=== PATIENT | male | born 1950 | race Two or more races ===

== ENCOUNTER 2024-09-07 19:14 | Inpatient (IN) | payer MEDICARE, OTHER ==
[~2024-09-07] VITALS: Ht 177.8 cm; Wt 125.8 kg
[~2024-09-07 19:14] MED LIST: DUTA0.5C PO; FAMO-132 PO; HYDR2TAB7 PO; LEVO25TA2 PO; LORA0.5T PO; NEBI5TAB8 PO
[2024-09-07 19:35] VITALS: BP 166/68; TEMP 98; O2SAT 98
[2024-09-07] MEDS ORDERED: LOSA100T31 PO (19:57)
[2024-09-07] MEDS ORDERED: AMLO10TA59 PO (19:57)
[2024-09-07] MEDS ORDERED: ACET325T53 PO (19:57)
[2024-09-07] MEDS ORDERED: HYDR-4075 PO (19:57)
[2024-09-07] MEDS ORDERED: ALBU2.5V13 NEB (19:57)
[2024-09-07] MEDS ORDERED: METO25TA6 PO (19:57)
[2024-09-07] MEDS ORDERED: TAMS-3 PO (19:57)
[2024-09-07] MEDS ORDERED: ONDA4AMP IVP (19:57)
[2024-09-07] MEDS ORDERED: ZOLP5TAB8 PO (19:57)
[2024-09-07] MEDS ORDERED: PIPE3.3749 IV (19:57)
[2024-09-07] MEDS ORDERED: MONT10TA33 PO (19:57)
[2024-09-07] MEDS ORDERED: IPRA0.2S48 NEB (19:58)
[2024-09-07 20:00] VITALS: BP 166/68; TEMP 98; O2SAT 98
[2024-09-07] MEDS ORDERED: ALBUTEROL SULFATE 2.5 MG/ 0.5 ML NEBU NEB PRN (20:30)
[2024-09-07] MEDS ORDERED: IPRATROPIUM BROMIDE 0.5 MG/2.5 ML NEBU NEB PRN (20:30)
[2024-09-07] MEDS ORDERED: ACETAMINOPHEN 325 MG TABLET-SA PATIENTS-PAIN ONLY PO PRN (20:30)
[2024-09-07] MEDS: HYDROMORPHONE HCL 2 MG TABLET PO PRN ×2 (20:37→22:56)
[2024-09-07] MEDS ORDERED: REMEDY ESSENTIAL ZINC PASTE 113 GM TOP PRN (21:30)
[2024-09-07] MEDS ORDERED: PIPERACILLIN SODIUM/TAZOBACTAM 3.375 G in IV NORMAL SALINE 50 ML IV SCH (21:30)
[2024-09-07] MEDS: TAMSULOSIN HCL 0.4 MG CAP.SR.24H PO SCH (21:35)
[2024-09-07] MEDS: hydrALAZINE HCL 25 MG TABLET PO PRN (21:35)
[2024-09-07] MEDS: ZOLPIDEM 5 MG TABLET PO PRN (21:44)
[2024-09-07] MEDS ORDERED: PIPERACILLIN SODIUM/TAZO 3.375 GM VIAL ONE (22:52)
[2024-09-07] MEDS: PIPERACILLIN SODIUM/TAZOBACTAM 3.375 G in IV NORMAL SALINE 50 ML IV SCH (23:21)
[2024-09-08 05:57] VITALS: BP 120/70; TEMP 98; O2SAT 99
[2024-09-08] MEDS: LEVOTHYROXINE SODIUM 175 MCG TABLET PO SCH (06:04)
[2024-09-08] MEDS ORDERED: ACETAMINOPHEN 325 MG TABLET PO PRN (07:30)
[2024-09-08 08:14] LABS: BASOPHILS # (AUTO) 0.1 K/UL (0.0-0.2); BASOPHILS % (AUTO) 0.5 % (0.0-2.0); DIFFERENTIAL COMMENT 1; EOSINOPHILS # (AUTO) 0.2 K/uL (0.0-0.7); EOSINOPHILS % (AUTO) 1.6 % (0.0-7.0); HEMATOCRIT 41.9 % (36.7-47.1); HEMOGLOBIN 13.9 g/dL (12.5-16.3); LYMPHOCYTES # (AUTO) 2.3 K/uL (0.8-4.8); LYMPHOCYTES % (AUTO) 18.6 % (20.5-51.5); MEAN CORPUSCULAR HEMOGLOBIN 27.5 uug (23.8-33.4); MEAN CORPUSCULAR HGB CONC 33 g/dL (32.5-36.3); MEAN CORPUSCULAR VOLUME 83.1 fL (73.0-96.2); MONOCYTES # (AUTO) 0.8 K/uL (0.1-1.30); MONOCYTES % (AUTO) 6.8 % (0.0-11.0); NEUTROPHILS % (AUTO) 72.5 % (38.5-71.5); PLATELET COUNT (AUTO) 239 K/uL (152-348); RED BLOOD CELL COUNT(AUTO) 5.04 MIL/uL (4.06-5.63); RED CELL DISTRIBUTION WIDTH 15.3 % (12.1-16.2); WHITE BLOOD COUNT (AUTO) 12.5 K/uL (3.6-10.2)
[2024-09-08 08:23] LABS: ALANINE AMINOTRANSFERASE 17 U/L (16-63); ALBUMIN 2.5 g/dL (3.4-5.0); ALKALINE PHOSPHATASE 47 U/L (50-136); ASPARTATE AMINOTRANSFERASE 13 U/L (15-37); BILIRUBIN,DIRECT 0.2 mg/dL (0.0-0.2); BILIRUBIN,TOTAL 0.6 mg/dL (0.2-1.0); CALCIUM 8.6 mg/dL (8.5-10.1); CARBON DIOXIDE 29 mmol/L (21-32); CHLORIDE 102 mmol/L (98-107); GLUCOSE 155 mg/dL (74-106); SODIUM SERUM 140 mmol/L (136-145); TOTAL PROTEIN, SERUM 6.6 g/dL (6.4-8.2); UREA NITROGEN, BLOOD 17 mg/dL (7-18)
[2024-09-08] MEDS: LOSARTAN POTASSIUM 50 MG TABLET PO SCH (08:58)
[2024-09-08] MEDS: DUTASTERIDE 0.5 MG CAPSULE PO SCH (08:58)
[2024-09-08] MEDS: AMLODIPINE 10 MG TABLET PO SCH (08:58)
[2024-09-08] MEDS: FAMOTIDINE 20 MG TABLET PO SCH (08:59)
[2024-09-08] MEDS: METOPROLOL TARTRATE 25 MG TABLET PO SCH (08:59)
[2024-09-08] MEDS: MONTELUKAST SODIUM 10 MG TABLET PO SCH (08:59)
[2024-09-08] MEDS ORDERED: LEVO175T7 PO (09:36)
[2024-09-08] MEDS ORDERED: PIPERACILLIN SODIUM/TAZOBACTAM 3.375 G in IV DEXTROSE 5% 100 ML IV SCH (09:46)
[2024-09-08 11:24] LABS: ANISOCYTOSIS 1+; EOSINOPHILS % (MANUAL) 2 % (0-8); LYMPHOCYTES % (MANUAL) 23 % (20-40); METAMYELOCYTES % 1 % (0-1); MONOCYTES % (MANUAL) 5 % (2-10); NEUTROPHILS % (MANUAL) 69 % (42-75); PLATELET ESTIMATE ADEQUATE
[2024-09-08] MEDS: POTASSIUM CHLORIDE 20 MEQ TAB.PRT.SR PO ONE (11:30)
[2024-09-08] MEDS ORDERED: PIPERACILLIN SODIUM/TAZO 3.375 GM VIAL IV SCH (12:00)
[2024-09-08] MEDS: PIPERACILLIN SODIUM/TAZOBACTAM 3.375 G in IV DEXTROSE 5% 50 ML IV SCH (12:56)
[2024-09-08] MEDS ORDERED: CYCL30DR EACHEYE (18:18)
[2024-09-08] MEDS ORDERED: ICOS1CAP PO (18:18)
[2024-09-08] MEDS ORDERED: MIRA50TA PO (18:18)
[2024-09-08] MEDS ORDERED: MOUNJARO SQ (18:18)
[2024-09-08 20:15] VITALS: BP 169/62; TEMP 98.2; O2SAT 97
[2024-09-08] MEDS: LORAZEPAM 0.5 MG TABLET PO PRN (21:23)
[2024-09-08] MEDS ORDERED: MORPHINE SULFATE SR 15 MG TABLET.SA PO PRN (21:45)
[2024-09-08] MEDS: HYDROMORPHONE HCL 2 MG TABLET PO PRN (21:58)
[2024-09-09] VITALS (7 sets, daily range): BP systolic 142–176; BP diastolic 53–77; TEMP 97.4–98.7; O2SAT 95–98
[2024-09-09] MEDS: ASPIRIN 81 MG TAB.CHEW PO SCH (09:13)
[2024-09-09] MEDS ORDERED: MOUNJARO SQ SCH (09:30)
[2024-09-09] MEDS: HYDROMORPHONE HCL 2 MG TABLET PO PRN (13:40)
[2024-09-09] MEDS: ICOSAPENT ETHYL 1 GM PO SCH (17:26)
[2024-09-09] MEDS: KETOROLAC TROMETHAMINE 10 MG TABLET PO PRN (17:27)
[2024-09-09] MEDS: ONDANSETRON 4 MG/2 ML VIAL IV PRN (22:49)
[2024-09-09] MEDS: HYDROMORPHONE 1 MG/1 ML DISP.SYRIN IV PRN (22:50)
[2024-09-09] MEDS: IV D5 1/2 NS 1000 ML 1,000 ML IV PRN (23:07)
[2024-09-10 04:30] VITALS: BP 182/71; TEMP 98.2; O2SAT 97
[2024-09-10] MEDS ORDERED: CLONIDINE-TTS 1 PATCH TD ONE (04:57)
[2024-09-10] MEDS: CLONIDINE-TTS 1 PATCH TD SCH (05:01)
[2024-09-10 07:06] LABS: BASOPHILS # (AUTO) 0.1 K/UL (0.0-0.2); EOSINOPHILS # (AUTO) 0.6 K/uL (0.0-0.7); EOSINOPHILS % (AUTO) 4.7 % (0.0-7.0); HEMOGLOBIN 12.7 g/dL (12.5-16.3); LYMPHOCYTES # (AUTO) 3.3 K/uL (0.8-4.8); LYMPHOCYTES % (AUTO) 25.2 % (20.5-51.5); MEAN CORPUSCULAR HEMOGLOBIN 27.8 uug (23.8-33.4); MEAN CORPUSCULAR HGB CONC 33 g/dL (32.5-36.3); MEAN CORPUSCULAR VOLUME 83.4 fL (73.0-96.2); MONOCYTES # (AUTO) 0.8 K/uL (0.1-1.30); NEUTROPHILS # (AUTO) 8.3 K/uL (1.8-8.9); NEUTROPHILS % (AUTO) 63.1 % (38.5-71.5); PLATELET COUNT (AUTO) 240 K/uL (152-348); RED BLOOD CELL COUNT(AUTO) 4.55 MIL/uL (4.06-5.63); RED CELL DISTRIBUTION WIDTH 15.5 % (12.1-16.2); WHITE BLOOD COUNT (AUTO) 13.1 K/uL (3.6-10.2)
[2024-09-10 07:10] LABS: DIFFERENTIAL COMMENT 1
[2024-09-10 07:20] LABS: ALANINE AMINOTRANSFERASE 13 U/L (16-63); ALBUMIN 2.1 g/dL (3.4-5.0); ALKALINE PHOSPHATASE 43 U/L (50-136); ASPARTATE AMINOTRANSFERASE 9 U/L (15-37); BILIRUBIN,TOTAL 0.4 mg/dL (0.2-1.0); CARBON DIOXIDE 29 mmol/L (21-32); CHLORIDE 103 mmol/L (98-107); GLUCOSE 146 mg/dL (74-106); LIPASE 39 U/L (16-77); MAGNESIUM 1.5 mg/dL (1.8-2.4); PHOSPHOROUS 3.1 mg/dL (2.5-4.9); SODIUM SERUM 138 mmol/L (136-145); TOTAL PROTEIN, SERUM 5.9 g/dL (6.4-8.2); UREA NITROGEN, BLOOD 12 mg/dL (7-18)
[2024-09-10] MEDS: MYRBETRIQ 25 MG PO SCH (08:48)
[2024-09-10] MEDS: EYE EMULSION EACHEYE SCH (09:00)
[2024-09-10] MEDS: CYCLOSPORINE 0.05% EACHEYE SCH (09:00)
[2024-09-10] MEDS: POTASSIUM CHLORIDE 10 MEQ TAB.PRT.SR PO SCH (11:06)
[2024-09-10] MEDS: MAGNESIUM OXIDE 400 MG TABLET PO ONE (11:06)
[2024-09-10 14:01] LABS: BAND % (MANUAL) 6 % (0-10); EOSINOPHILS % (MANUAL) 5 % (0-8); LYMPHOCYTES % (MANUAL) 21 % (20-40); MONOCYTES % (MANUAL) 6 % (2-10); NEUTROPHILS % (MANUAL) 52 % (42-75); PLATELET ESTIMATE ADEQUATE
[2024-09-10 14:02] LABS: ANISOCYTOSIS 1+
[2024-09-10 18:15] VITALS: BP 134/44; TEMP 97.9; O2SAT 96
[2024-09-10 20:00] VITALS: BP 132/50; TEMP 97.4; O2SAT 95
[2024-09-10] MEDS: DOCUSATE SODIUM 100 MG CAPSULE PO SCH (20:33)
[2024-09-11 08:30] VITALS: BP 145/53; TEMP 97.4; O2SAT 95
[2024-09-11 09:00] VITALS: O2SAT 96
[2024-09-11 16:00] VITALS: BP 132/57; TEMP 97.9; O2SAT 97
[2024-09-11 20:03] VITALS: BP 162/67; TEMP 98.4; O2SAT 98
[2024-09-11] MEDS: FAMOTIDINE 20 MG TABLET PO SCH (21:06)
[2024-09-12 05:22] VITALS: O2SAT 96
[2024-09-12 09:00] VITALS: O2SAT 97
[2024-09-12] MEDS: HYDROMORPHONE HCL 2 MG TABLET PO PRN (11:15)
[2024-09-12 16:36] VITALS: BP 139/59; TEMP 97.9; O2SAT 96
[2024-09-12] MEDS: FAMOTIDINE 20 MG TABLET PO ONE (18:31)
[2024-09-12 21:49] VITALS: BP 175/74; TEMP 98.2; O2SAT 98
[2024-09-13 01:49] VITALS: BP 140/60; TEMP 98.2; O2SAT 96
[2024-09-13 05:47] VITALS: O2SAT 98
[2024-09-13 06:29] VITALS: BP 138/59; TEMP 98.2; O2SAT 96
[2024-09-13] MEDS: OXYCODONE/APAP 5-325 MG TABLET PO SCH (13:56)
[2024-09-13 16:22] VITALS: BP 108/46; TEMP 98.2; O2SAT 96
[2024-09-13] MEDS: HYDROMORPHONE HCL 2 MG TABLET PO PRN (16:33)
[2024-09-13 16:50] VITALS: O2SAT 97
[2024-09-13 20:00] VITALS: BP 129/54; TEMP 98.2; O2SAT 98
[2024-09-13] MEDS: MELATONIN 3 MG TABLET PO SCH (21:04)
[2024-09-13] MEDS: ZOLPIDEM 5 MG TABLET PO PRN (22:50)
[2024-09-14 04:15] VITALS: O2SAT 97
[2024-09-14 06:00] VITALS: BP 147/70; TEMP 98.1; O2SAT 97
[2024-09-14 16:00] VITALS: BP 118/49; TEMP 98; O2SAT 99
[2024-09-14 16:35] VITALS: O2SAT 98
[2024-09-14 20:25] VITALS: O2SAT 98
[2024-09-15 06:00] VITALS: BP 133/67; TEMP 98.1; O2SAT 97
[2024-09-15 10:25] VITALS: O2SAT 97
[2024-09-15] MEDS ORDERED: IBUPROFEN 600 MG TABLET PO PRN (13:15)
[2024-09-15 16:00] VITALS: BP 93/41; TEMP 98.8; O2SAT 96
[2024-09-15 20:17] VITALS: BP 128/41; TEMP 98.1; O2SAT 98
[2024-09-16 06:38] VITALS: BP 130/42; TEMP 97.8; O2SAT 95
[2024-09-16 16:15] VITALS: BP 122/46; TEMP 98.1; O2SAT 96
[2024-09-16 20:08] VITALS: BP 114/52; TEMP 98; O2SAT 97
[2024-09-16] MEDS: LACTULOSE 20 G/30 ML LIQUID UDC PO SCH (22:18)
[2024-09-17 06:30] VITALS: BP 132/48; TEMP 97.9; O2SAT 97
[2024-09-17] MEDS: CLONIDINE-TTS 1 PATCH TD SCH (09:03)
[2024-09-17 16:21] VITALS: BP 113/48; TEMP 98.1; O2SAT 96
[2024-09-17 16:38] VITALS: O2SAT 96
[2024-09-17 20:00] VITALS: BP 133/54; TEMP 97.8; O2SAT 95
[2024-09-18 06:22] VITALS: BP 155/76; TEMP 97.8; O2SAT 94
[2024-09-18 16:31] VITALS: BP 114/50; TEMP 97.8; O2SAT 100
[2024-09-18 19:59] VITALS: BP 139/49; TEMP 98.1; O2SAT 97
[2024-09-19 05:19] VITALS: O2SAT 97
[2024-09-19 05:38] VITALS: BP 114/42; TEMP 97.9; O2SAT 98
[2024-09-19 07:12] LABS: BASOPHILS # (AUTO) 0.1 K/UL (0.0-0.2); EOSINOPHILS # (AUTO) 0.2 K/uL (0.0-0.7); EOSINOPHILS % (AUTO) 3.5 % (0.0-7.0); HEMATOCRIT 31.2 % (36.7-47.1); HEMOGLOBIN 10.8 g/dL (12.5-16.3); LYMPHOCYTES # (AUTO) 2.2 K/uL (0.8-4.8); LYMPHOCYTES % (AUTO) 32.3 % (20.5-51.5); MEAN CORPUSCULAR HEMOGLOBIN 28.7 uug (23.8-33.4); MEAN CORPUSCULAR HGB CONC 34 g/dL (32.5-36.3); MEAN CORPUSCULAR VOLUME 83.2 fL (73.0-96.2); MONOCYTES # (AUTO) 0.7 K/uL (0.1-1.30); MONOCYTES % (AUTO) 9.7 % (0.0-11.0); NEUTROPHILS # (AUTO) 3.7 K/uL (1.8-8.9); NEUTROPHILS % (AUTO) 53.5 % (38.5-71.5); PLATELET COUNT (AUTO) 203 K/uL (152-348); RED BLOOD CELL COUNT(AUTO) 3.75 MIL/uL (4.06-5.63); RED CELL DISTRIBUTION WIDTH 15.6 % (12.1-16.2); WHITE BLOOD COUNT (AUTO) 6.8 K/uL (3.6-10.2)
[2024-09-19 07:14] LABS: DIFFERENTIAL COMMENT 1
[2024-09-19 07:22] LABS: CALCIUM 8.8 mg/dL (8.5-10.1); CARBON DIOXIDE 32 mmol/L (21-32); CHLORIDE 100 mmol/L (98-107); CREATININE 1.3 mg/dL (0.6-1.3); GLUCOSE 144 mg/dL (74-106); MAGNESIUM 2.1 mg/dL (1.8-2.4); PHOSPHOROUS 4.1 mg/dL (2.5-4.9); POTASSIUM 4.2 mmol/L (3.5-5.1); SODIUM SERUM 136 mmol/L (136-145); UREA NITROGEN, BLOOD 13 mg/dL (7-18)
[2024-09-19 15:24] VITALS: BP 101/64; TEMP 97.8; O2SAT 95
[2024-09-19 16:35] VITALS: O2SAT 96
[2024-09-19 20:00] VITALS: BP 135/57; TEMP 98.2; O2SAT 96
[2024-09-20 00:13] VITALS: O2SAT 96
[2024-09-20 06:00] VITALS: BP 135/45; TEMP 97.9; O2SAT 93
[2024-09-20 09:50] VITALS: BP 131/46; O2SAT 95
[2024-09-20 14:44] VITALS: O2SAT 95
[2024-09-20 15:17] VITALS: BP 128/59; TEMP 98.6; O2SAT 96
[2024-09-20 20:10] VITALS: BP 115/37; TEMP 98.1; O2SAT 98
[2024-09-21 00:09] VITALS: O2SAT 95
[2024-09-21] MEDS: LACTULOSE 20 G/30 ML LIQUID UDC PO PRN (13:58)
[2024-09-21 14:57] VITALS: BP 109/49; TEMP 97.5; O2SAT 96
[2024-09-21] MEDS ORDERED: BISACODYL 10 MG SUPP.RECT RC PRN (15:00)
[2024-09-21 18:49] VITALS: BP 119/89; TEMP 98.3; O2SAT 91
[2024-09-21 20:21] VITALS: BP 121/47; TEMP 98.1; O2SAT 98
[2024-09-22 05:40] VITALS: BP 148/65; TEMP 98.2; O2SAT 95
[2024-09-22 09:15] VITALS: O2SAT 95
[2024-09-22 16:00] VITALS: BP 140/55; TEMP 97.8; O2SAT 97
[2024-09-22] MEDS ORDERED: NALOXONE HCL 0.4 MG/ML AMPUL IV PRN (16:00)
[2024-09-22 19:00] VITALS: BP 111/65; TEMP 97.9; O2SAT 95
[2024-09-22] MEDS: HYDROMORPHONE HCL 2 MG TABLET PO PRN (19:39)
[2024-09-22] MEDS: OXYCODONE HCL 10 MG TAB.SR.12H PO SCH (21:43)
[2024-09-22] MEDS: TRAZODONE 100 MG TABLET PO SCH (21:43)
[2024-09-23 06:00] VITALS: BP 104/55; TEMP 97.7; O2SAT 99
[2024-09-23 09:25] VITALS: O2SAT 96
[2024-09-23 16:00] VITALS: BP 117/59; TEMP 97.6; O2SAT 97
== END 2024-09-23 15:47 | disposition home health service (06) | DRG 949 ==
PROVIDERS: ADMIT Physical Medicine & Rehabilitation Pain Medicine; ATTEND Physical Medicine & Rehabilitation Pain Medicine
DX: Z48.815 Encounter for surgical aftercare following surgery on the digestive system (principal); E43 Unspecified severe protein-calorie malnutrition; J96.20 Acute and chronic respiratory failure, unspecified whether with hypoxia or hypercapnia; D68.59 Other primary thrombophilia; E44.0 Moderate protein-calorie malnutrition; I50.32 Chronic diastolic (congestive) heart failure; N17.9 Acute kidney failure, unspecified; E89.0 Postprocedural hypothyroidism; Z85.850 Personal history of malignant neoplasm of thyroid; I10 Essential (primary) hypertension; I25.10 Atherosclerotic heart disease of native coronary artery without angina pectoris; N40.0 Benign prostatic hyperplasia without lower urinary tract symptoms; E66.01 Morbid (severe) obesity due to excess calories; E88.09 Other disorders of plasma-protein metabolism, not elsewhere classified; Z85.528 Personal history of other malignant neoplasm of kidney; Z85.118 Personal history of other malignant neoplasm of bronchus and lung; D50.9 Iron deficiency anemia, unspecified; R19.5 Other fecal abnormalities; E87.6 Hypokalemia; Z86.73 Personal history of transient ischemic attack (TIA), and cerebral infarction without residual deficits; G89.29 Other chronic pain; I11.0 Hypertensive heart disease with heart failure; K42.9 Umbilical hernia without obstruction or gangrene; Z68.39 Body mass index [BMI] 39.0-39.9, adult; Z90.49 Acquired absence of other specified parts of digestive tract; Z90.5 Acquired absence of kidney; Z95.5 Presence of coronary angioplasty implant and graft; K21.9 Gastro-esophageal reflux disease without esophagitis
CPT/HCPCS: 36415; 70030-TC; 83690; 83735; 84100; 85025; 97535-GO-CO; A4663; J1171; J2405; J2543; J7042